=== PATIENT | female | born 1985 | race Caucasian/White ===

== ENCOUNTER 2019-07-06 18:57 | Inpatient (IN) | payer OTHER, SELFPAY ==
[2019-07-06 19:36] VITALS: BP 134/85; PULSE 103
[2019-07-06] MEDS: DINOPROSTONE 10 MG VAG INSERT VAGINAL (20:02)
[2019-07-06 20:18] LABS: Basophils Percent Auto 0.3 % (0.2-1.2); Eosinophils Percent Auto 0.1 % (0-4.4); Hematocrit 38.1 % (37.0-47.0); Hemoglobin 12.7 g/dL (12.0-15.0); Immature Granulocyte Absolute 0.07 K/mm3 (0.00-0.031); Immature Granulocyte Percent A 0.5 % (0-0.5); Lymphocytes Absolute Auto 3.38 K/mm3 (0.9-3.2); Lymphocytes Percent Auto 25.1 % (18.3-44.2); Mean Corpuscular HGB Conc 33.3 g/dl (32-36); Mean Corpuscular Hemoglobin 31.8 pg (26-34); Mean Corpuscular Volume 95.5 fl (80-100); Mean Platelet Volume 10.5 fl (7.4-10.4); Monocytes Absolute Auto 0.8 K/mm3 (0.1-0.6); Monocytes Percent Auto 5.6 % (2.6-8.5); Neutrophils Absolute Auto 9.2 K/mm3 (1.3-6.7); Neutrophils Percent Auto 68.4 % (45.5-73.1); Platelet Count Result 290 k/mm3 (150-375); Red Blood Count 3.99 M/mm3 (4.2-5.4); Red Cell Distribution Width 13.7 % (11.5-14.5); White Blood Count 13.5 K/mm3 (4.5-10.0)
--- NOTE | 2019-07-06 20:28 | LDADM ---
This patient, Tammie Haynes, was admitted to Labor/Delivery/Recovery 106 on 07/06/19 at 18:57. Plans for labor, pain management and were discussed with patient. Patient/family oriented to hospital policies and general routines including ID bracelet, bed and alarms, visiting hours, pain management, procedures, bathroom and other care routines, personal items, smoking policy, room service/diet and guest tray routines, infant security routines, and visiting hours. Patient/Family are encouraged to report perceived risks to care and to ask questions if they do not understand what they are told or what they should do. See OBIX for further documentation.
[2019-07-06 20:31] VITALS: BP 125/73; PULSE 102
[2019-07-06 21:00] VITALS: BP 134/82; PULSE 95
[2019-07-06 22:01] VITALS: BP 132/71; PULSE 90
[2019-07-07] VITALS (114 sets, daily range): BP systolic 94–131; BP diastolic 39–88; PULSE 65–117; TEMP 36.8–37.3; O2SAT 97–100; BMI 47.2
[2019-07-07] MEDS: LACTATED RINGERS 1,000 ML 125 ML IV CONT ×2 (02:30→23:38)
--- NOTE | 2019-07-07 05:39 | WPDANESEPP ---
Anes - Eval Pre Procedure Procedure: labor epidural Date/Time: 07/07/19 05:39 Surgeon: rony Pre Op Diagnosis: Induction Patient Data Age: 34 Gender: F Height: Weight: Last Vital Signs Temp 37.1 C 07/07/19 02:18 Pulse 76 07/07/19 03:30 BP 123/72 07/07/19 03:30 Allergies Allergy/AdvReac Type Severity Reaction Status Date / Time Penicillins Allergy Unknown Verified 07/03/19 10:50 Home Medications Medication Instructions Recorded Confirmed Type vits 75-iron 28 mg-folic pkg PO 01/09/19 History acid 800 mcg-omega-3 oral combo pack Laboratory Tests 07/06/19 07/06/19 07/06/19 20:00 20:00 20:01 WBC 13.5 K/mm3 H K/mm3 (4.5-10.0) RBC 3.99 M/mm3 L M/mm3 (4.2-5.4) Hgb 12.7 g/dL g/dL (12.0-15.0) Hct 38.1 % % (37.0-47.0) MCV 95.5 fl fl (80-100) MCH 31.8 pg pg (26-34) MCHC 33.3 g/dl g/dl (32-36) RDW 13.7 % % (11.5-14.5) Plt Count 290 k/mm3 k/mm3 (150-375) MPV 10.5 fl H fl (7.4-10.4) Immature Gran % (Auto) 0.5 % % (0-0.5) Neut % (Auto) 68.4 % % (45.5-73.1) Lymph % (Auto) 25.1 % % (18.3-44.2) [place] % (Auto) 5.6 % % (2.6-8.5) Eos % (Auto) 0.1 % % (0-4.4) Baso % (Auto) 0.3 % % (0.2-1.2) Lymph # (Auto) 3.38 K/mm3 H K/mm3 (0.9-3.2) [place] # (Auto) 0.8 K/mm3 H K/mm3 (0.1-0.6) Eos # (Auto) 0.0 K/mm3 K/mm3 (0-0.3) Baso # (Auto) 0.0 K/mm3 K/mm3 (0.0-0.1) Abs Immat Gran (auto) 0.07 K/mm3 H K/mm3 (0.00-0.031) Absolute Neuts (auto) 9.2 K/mm3 H K/mm3 (1.3-6.7) Absolute Nucleated RBC 0.0 K/mm3 K/mm3 (0.0-0.012) Nucleated RBC % 0.0 % % (0.0-0.2) RPR Pending Blood Type B Positive Antibody Screen Negative Patient hx anesthesia problems: none Family hx anesthesia problems: none PMFSH Social History Social History Smoking status: Never smoker Alcohol intake: never Substance use: never Gender identity (if verbalized by the patient): Female Spiritual care concerns: No Exam Day of Procedure 07/07/19 05:39
[2019-07-07 07:06] LABS: Rapid Plasma Reagin Non-Reactive (NonReactive)
[2019-07-07] MEDS: MISOPROSTOL 25 MCG TABLET VAGINAL ×2 (09:31→13:31)
--- NOTE | 2019-07-07 10:26 | PM.IMHP ---
H&P: HPI History of Present Illness Chief complaint: Induction Narrative: Tammie Haynes is a 34 year old female at 38 weeks by LMP 10/12/18 with an EDC 07/19/19, Ultrasound on 12/26 [id number] 07/21/19, which was consistent with her established EDC by her sure LMP. 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 She has been getting serial ultrasounds for growth which have been reassuring. She has had evaluation by her manager of regulatory affairs and [place] disease was ruled out. Her renal function has been normal. Labs: B+, Frag X abd NIPT neg, CF neg, hemoglobin electrophoresis normal, HIV-neg, RPR- neg, HepBsag-neg, Rub- NI, TSH-nl, VitD-16, H/H 13/39/296, glucola-137, 3hr 86/172/145/87. No headache, scotomata or RUQ pain. Review of Systems Review of Systems: All systems reviewed & are unremarkable except as noted in HPI and below Constitutional: Constitutional: Reports no additional constitutional complaints and Denies headache(s) Eyes: Eyes: Denies spots in vision ENT: Reports system reviewed and no additional complaints, except as documented and Denies headache(s) Cardiovascular: Cardiovascular: Denies chest pain and Denies dyspnea Respiratory: Respiratory: Denies dyspnea Gastrointestinal: Gastrointestinal: Reports no additional gastrointestinal complaints Genitourinary: Genitourinary: Reports amenorrhea Musculoskeletal: Musculoskeletal: Reports no additional musculoskeletal complaints Integumentary/Breasts: Skin/Breast: Denies breast mass and Denies rash Neurologic: Denies headache(s) Psychiatric: Psychiatric: Reports no additional psychiatric complaints [facility] Past Medical History Medical History Chronic hypertension affecting Renal disease Family History Family History Grandparent Carcinoma of colon Mother Hypertension Diabetes mellitus Mother Diabetes mellitus Hypertension Grandparent Carcinoma of colon Social History Social History Smoking status: Never smoker Alcohol intake: never Substance use: never Gender identity (if verbalized by the patient): Female Spiritual care concerns: No Meds Home Medications and Allergies Home Medications Medication Instructions Recorded Confirmed Type vits 75-iron 28 mg-folic pkg PO 01/09/19 History acid 800 mcg-omega-3 oral combo pack Allergies Allergy/AdvReac Type Severity Reaction Status Date / Time Penicillins Allergy Unknown Verified 07/03/19 10:50 Vital Signs Vital Signs - 24 hr 07/06/19 19:36 07/06/19 20:31 07/06/19 21:00 Temperature Pulse Rate 103 H 102 H 95 Blood Pressure 134/85 125/73 134/82 07/06/19 22:01 07/07/19 02:18 07/07/19 02:20 Temperature 98.8 F Pulse Rate 90 92 Blood Pressure 132/71 124/75 07/07/19 02:46 07/07/19 03:00 07/07/19 03:15 Temperature Pulse Rate 87 82 82 Blood Pressure 111/63 108/66 108/56 L 07/07/19 03:30 07/07/19 07:03 07/07/19 07:32 Temperature 98.3 F Pulse Rate 76 78 Blood Pressure 123/72 125/71 07/07/19 09:37 07/07/19 09:45 07/07/19 10:00 Temperature Pulse Rate 85 74 75 Blood Pressure 123/78 119/74 124/69 07/07/19 10:15 Temperature Pulse Rate 71 Blood Pressure 122/67 Exam Const: General: no acute distress Eyes: General: appearance normal, both eyes and all related structures Resp: Effort & Inspection: normal respiratory effort Cardio: Rate: regular rate GI: Other: Gravid no fundal tenderness no right upper quadrant pain, louis 8-8 03/06 : External Female Exam: normal external appearance Manual OB Exam: Not dilated nor effaced Skin: General skin exam: no rashes or lesions noted Neuro: Cognition (Neuro): normal cog
--- NOTE | 2019-07-07 11:04 | PM.OBPNVD ---
OB - PN: Subj Subjective Date/time seen: 07/07/19 0920 tracing reviewed. Cat 1. Baseline 135. She had isolated variable decels. Variability present. Cervix checked recently and int os closed. Will start Cytotec. OB - PN: Obj Data Labs CBC & Chem 7: 07/06/19 20:01 Labs: Laboratory Results - last 24 hr 07/06/19 07/06/19 07/06/19 20:00 20:00 20:01 WBC 13.5 H RBC 3.99 L Hgb 12.7 Hct 38.1 MCV 95.5 MCH 31.8 MCHC 33.3 RDW 13.7 Plt Count 290 MPV 10.5 H Immature Gran % (Auto) 0.5 Neut % (Auto) 68.4 Lymph % (Auto) 25.1 [place] % (Auto) 5.6 Eos % (Auto) 0.1 Baso % (Auto) 0.3 Lymph # (Auto) 3.38 H [place] # (Auto) 0.8 H Eos # (Auto) 0.0 Baso # (Auto) 0.0 Abs Immat Gran (auto) 0.07 H Absolute Neuts (auto) 9.2 H Absolute Nucleated RBC 0.0 Nucleated RBC % 0.0 RPR Non-reactive Blood Type B Positive Antibody Screen Negative OB - PN A/P Time Spent With Patient Time: Total time spent is greater than 50% in coordination of care (as documented) at patient's floor/unit and/or counseling patient:
--- NOTE | 2019-07-07 15:58 | PM.OBPNVD ---
OB - PN: Subj Subjective Date/time seen: 07/07/19 15:58 FHT 140, Cat 1, isolated variable decel, non repetitive, variability present. Cervix 2/50%/-2, AROM clear. If contractions decrease then will augment with Pitocin. OB - PN: Obj Data Labs CBC & Chem 7: 07/06/19 20:01 Labs: Laboratory Results - last 24 hr 07/06/19 07/06/19 07/06/19 20:00 20:00 20:01 WBC 13.5 H RBC 3.99 L Hgb 12.7 Hct 38.1 MCV 95.5 MCH 31.8 MCHC 33.3 RDW 13.7 Plt Count 290 MPV 10.5 H Immature Gran % (Auto) 0.5 Neut % (Auto) 68.4 Lymph % (Auto) 25.1 [place] % (Auto) 5.6 Eos % (Auto) 0.1 Baso % (Auto) 0.3 Lymph # (Auto) 3.38 H [place] # (Auto) 0.8 H Eos # (Auto) 0.0 Baso # (Auto) 0.0 Abs Immat Gran (auto) 0.07 H Absolute Neuts (auto) 9.2 H Absolute Nucleated RBC 0.0 Nucleated RBC % 0.0 RPR Non-reactive Blood Type B Positive Antibody Screen Negative OB - PN A/P Time Spent With Patient Time: Total time spent is greater than 50% in coordination of care (as documented) at patient's floor/unit and/or counseling patient:
[2019-07-07] MEDS: OXYTOCIN 30 UNITS/NS 500 ML 30 UNITS/500 ML BAG 6 UNITS IV CONT (20:00)
[2019-07-08] VITALS (66 sets, daily range): BP systolic 108–142; BP diastolic 54–84; PULSE 65–135; RESP 18; TEMP 36.9–37.7; O2SAT 91–100
[2019-07-08] MEDS: OXYTOCIN 30 UNITS/NS 500 ML 30 UNITS/500 ML BAG 6 UNITS IV CONT (05:04)
--- NOTE | 2019-07-08 05:08 | PM.OBPRVD ---
OB - Delivery Note Procedure Delivery date: 07/08/19 Procedure: Spontaneous vaginal delivery events: Labor Induction Induction method: AROM, per misoprostol protocol and per pitocin protocol Delivery augmentation: rupture of membranes Delivery monitor: external FHT and internal uterine Route of delivery: Laceration description: Perineal - 1st Degree Delivery repair: vicryl (3.0) Specimen: Yes Estimated blood loss (mL): 150 Anesthesia type: Epidural Disposition: floor Complications: None [place] Baby Date of : 07/08/19 Time of : 04:25 Weeks of gestation at delivery: 38 Infant gender: Male Weight (pounds): 7 Weight (ounces): 9 presentation: vertex position: Left Occiput Anterior Placenta delivery description: Spontaneous cord vessel description: Nuchal Cord, Tight and Reduced (surgically) score one minute: 8 score five minutes: 9 Narrative: Patient admitted on 07/06 for induction with cervidil due to chronic hypertension. She had cervidil in for 12 hours. Cervix unchanged. She was started on Cytotec. After her second dose. Her cervix dilated to 2 cm. She had assisted rupture of membranes, clear. Her labor course significant for nonrepetitive variable decelerations. She had IUPC placed to monitor contractions better. She was started on Pitocin. She progressed into active labor. Tracing was Cat 2. She did have decelerations at start of pushing. After resting she then pushed and delivered a male infant in the left occiput anterior position. Tight nuchal cord surgically reduced. vigorously crying and placed on maternal abdomen. Cord gases and cord blood obtained. Placenta delivered intact. She sustained a first degree perineal laceration repaired with 3.0 vicryl. EBL 150cc. Patient tolerated procedure well. Baby name Sae.
[2019-07-08] MEDS: DOCUSATE SODIUM 100 MG CAPSULE PO ×2 (08:10→16:39)
[2019-07-08] MEDS: IBUPROFEN 600 MG TABLET PO ×2 (08:10→16:39)
[2019-07-08] MEDS: MULTIVIT/MIN/PREN/FOL AC/IRON TABLET 1 TAB PO (08:10)
--- NOTE | 2019-07-08 08:17 | PC.NURSE ---
Addendum entered by Constance Brown RN 07/08/19 08:18: Arrived on unit at 0735. Original Note: Patient transferred to post room #292 via wheelchair. Support person present. Oriented to unit, room, information board, rooming in, admission packet and security measures. Patient verbalizes understanding.
--- NOTE | 2019-07-08 09:30 | PC.NURSE ---
Mother called out for assist with feeding, reporting is sleepy. Reviewed feeding cues, frequencies, duration of feedings, feeding elimination flow sheet, and signs of adequate intake. Demonstrated stimulation techniques to wake for feeding. Assisted with to breast. Reviewed positioning/alignment, holding breast and asymmetrical latch on. Infant was sleepy making no atempt to latch. Advised to skin to skin and attempt again in 30 min.
--- NOTE | 2019-07-08 10:30 | PC.NURSE ---
Mother called out for assist with feeding. . Demonstrated stimulation techniques to wake for feeding. Several minutes of stimulation to wake infant. Assisted with to breast. Reviewed positioning/alignment in cross cradle, holding breast in U hold and guided asymmetrical latch on. Discussed rational for each. Infant was able to latch correctly. Infant nursed slowly at first needing constant stimulation, within a few minutes began nursing eagerly, with steady draws and occasional swallowing noted. Reviewed signs of a correct latch, effective nursing and suck swallow ratio. was able to maintain latch without discomfort to mother. Nipple care reviewed. Advised to continue to stimulate to keep awake and nursing effectively for increased intake and to assist with maintaining deep latch. Instructed mother to call out for RN assistance if she is unable to latch for feeding or she has discomfort with nursing. Instructed feeding should be initiated three hours from start of last feeding or if feeding cues are noted before. Mother voiced understanding of information shared.
[2019-07-09] MEDS: IBUPROFEN 600 MG TABLET PO ×4 (00:05→23:04)
[2019-07-09 05:24] LABS: Hematocrit 32.7 % (37.0-47.0); Hemoglobin 10.9 g/dL (12.0-15.0)
[2019-07-09] MEDS: BENZOCAINE 20% AER SPR (*SP) 56 GM CAN 1 SPRAY TOPICAL (07:58)
[2019-07-09] MEDS: DOCUSATE SODIUM 100 MG CAPSULE PO (07:58)
[2019-07-09] MEDS: WITCH HAZEL 40 PADS 1 PAD TOPICAL (07:58)
[2019-07-09 08:00] VITALS: BP 133/83; PULSE 78; RESP 18; TEMP 36.4; O2SAT 100
--- NOTE | 2019-07-09 08:41 | PM.OBPNVD ---
OB - PN: Subj Subjective Date/time seen: 07/09/19 08:41 No headache scotomata or right upper quadrant pain. Patient comments: pain well controlled, tolerating diet and other (Decreasing lochia.) baby status: doing well and nursing well feeding status: exclusively breast feeding OB - PN: Obj Data Labs CBC & Chem 7: 07/09/19 05:09 Labs: Laboratory Results - last 24 hr 07/09/19 05:09 Hgb 10.9 L Hct 32.7 L OB - PN A/P Plan day: 1 Plan: routine care Comments: Patient doing well. Isolated elevated blood pressure yesterday. Normal this am. Continue to monitor. Time Spent With Patient Time: Total time spent is greater than 50% in coordination of care (as documented) at patient's floor/unit and/or counseling patient: Exam Psych: Affect: normal affect Other: Abd: fundus firm below umbilicus, nontender Perineum: healing Ext: nontender
--- NOTE | 2019-07-09 11:25 | PC.NURSE ---
Mother called out for assist feeding. Mother reports was eagerly feeding throughout the night without discomfort. Reviewed feeding cues, frequencies, duration of feedings, feeding elimination flow sheet, and signs of adequate intake. Demonstrated stimulation techniques to wake infant for feeding. Assisted with infant to breast. Reviewed positioning/alignment in cross cradle, holding breast in U hold and guided asymmetrical latch on. Discussed rational for each. was able to latch correctly. Infant nursed eagerly, with steady draws and occasional swallowing noted. Reviewed signs of a correct latch, effective nursing and suck swallow ratio. Infant was able to maintain latch without discomfort to mother. Nipple care reviewed. Suggested mother continue to stimulate during feeding to increase intake and assist with maintaining deep latch. Instructed mother to call out for RN assistance if she is unable to latch infant for feeding or she has discomfort with nursing. Instructed feeding should be initiated three hours from start of last feeding or if feeding cues are noted before. Mother voiced understanding of information shared.
[2019-07-09] MEDS: MEASLES,MUMPS,RUBELLA VACCINE 0.5 ML VIAL SUB-Q (15:58)
[2019-07-09 19:00] VITALS: BP 139/85; PULSE 72; RESP 18; TEMP 36.7; O2SAT 98
[2019-07-10 08:00] VITALS: BP 134/66; PULSE 66; RESP 18; TEMP 36.9
[2019-07-10] MEDS: WITCH HAZEL 40 PADS 1 PAD TOPICAL (08:12)
[2019-07-10] MEDS: IBUPROFEN 600 MG TABLET PO (08:12)
[2019-07-10] MEDS: BENZOCAINE 20% AER SPR (*SP) 56 GM CAN 1 SPRAY TOPICAL (08:12)
[2019-07-10] MEDS: DOCUSATE SODIUM 100 MG CAPSULE PO (08:13)
[2019-07-10] MEDS: MULTIVIT/MIN/PREN/FOL AC/IRON TABLET 1 TAB PO (08:13)
--- NOTE | 2019-07-10 09:50 | PC.NURSE ---
Consult with pt., mother is teary this day and concerned with . Infant was fussy during the night and mother supplemented to calm infant. Assured mother infant is WNL on all requirements and small amounts of supplementation are needed if infant is not feeding as required or has low output. Infant has been eagerly latching since and satisfied after feedings. Advised mother to offer small amounts of EBM or formula before feedings if is fussy and refused to latch. Then attempt to breast. Mother is able to independently latch infant with appropriate positioning/alignment. She denies any nipple discomfort, is feeding as required and waking infant to feed if needed. has had 8 effective feedings in the past 24 hours, and is currently meeting outcomes for weight, output, jaundice and feeding frequencies. Mother states she feels confident to continue effective at home. Reviewed transition to breast milk, signs of adequate intake, and engorgement/relief. Instructed to call ICP if intake/output less than required. Reviewed regular medications mother is taking. Information provided per Juliette. Reviewed community resources on the [facility] website and in the Mom/Baby guide. Information on outpatient services provided. Mother has no further questions at this time.
--- NOTE | 2019-07-10 11:34 | PM.OBPNVD ---
OB - PN: Subj Subjective Date/time seen: 07/10/19 11:34 Patient comments: pain well controlled, tolerating diet and other (Decreasing lochia.) baby status: doing well and nursing well [place] feeding status: exclusively breast feeding OB - PN: Obj Data Labs CBC & Chem 7: 07/09/19 05:09 OB - PN A/P Plan day: 2 Plan: discharge home and other Comments: Patient doing well. Follow up in one week, may do this virtual since has blood pressure cuff at home. Follow up 4-6 weeks. Discharge instructions provided. Time Spent With Patient Time: Total time spent is greater than 50% in coordination of care (as documented) at patient's floor/unit and/or counseling patient: Time with patient: less than 15 minutes Exam Psych: Affect: normal affect Other: Abd: fundus firm below umbilicus, nontender Perineum: healing Ext: nontender
[2019-07-11 10:43] VITALS: BP 129/70; PULSE 69; RESP 18; TEMP 36.9
--- NOTE | 2019-08-08 11:52 | PM.OBDSVD ---
DS: Admitting Diagnosis Admitting Diagnosis Admitting Diagnosis: Encounter for supervision of normal , unspecified, third trimester DS: Discharge Diagnosis Discharge Diagnosis (1) Encounter for induction of labor: Code(s): Z34.90 - Encounter for supervision of normal , unspecified, unspecified trimester Status: Acute OB - DS: Summary OB Procedures : NST and Ultrasound OB Procedures Intrapartum: Spontaneous Vag Delivery OB Procedures: : None Peripartum Data Delivery Method: Natural Vaginal Laceration description: Perineal - 1st Degree Procedures: Spontaneous vaginal delivery complications: none Status at Discharge Functional status at discharge: independent ambulation Overall status at discharge: patient is back to baseline Time Spent with Patient Time attestation: Total time spent providing and/or coordinating discharge services: Time spent: Less than 30 minutes Exam Const: General: comfortable Resp: Effort & Inspection: normal respiratory effort Psych: Appearance: grossly normal DS: Data Data Completed and Pending Completed studies during hospitalization: Pending at discharge 07/08/19 04:31 Surgical [PTH] Routine Discharge Plan Discharge Attending physician on discharge: Carlos Combs Discharging Clinician: Carlos Combs Anticipated Discharge Date/Time: 07/10/19 11:35 Patient Disposition: Home, Self-Care Activity: may shower and pelvic rest Diet: low sodium Discharge Instructions: Routine post vaginal delivery. Take vitamin daily. May take over the counter Ibuprofen or Tylenol for pain. Take blood pressure at home every 1-2 days. Call for severe headache, scotomata or upper abdominal pain, or if saturating more than a pad an hour, leg pain and redness. Education: Mom and Baby Guide Given to: Mother Follow-Up: Call your delivering provider's office for an appointment to be seen in: 4 Weeks Mom and baby should come to the [facility] for the follow-up appointment. Appointment Date/Time: July 11, 2019 at 10:00 am What to expect at your follow-up visit: Blood Pressure Check Physical Assessment Call [phone] if you are unable to keep your appointment time. BREAST CARE: 1. Wear a snug supportive bra. 2. For engorgement discomfort: Breast Feeding: A. Apply warm moist washcloths B. Express milk as needed to relieve engorgement C. Wear loose clothing 3. For sore nipples: A. Identify correct latch-on B. Apply warm moist washcloths before and after nursing C. Air dry nipples after nursing D. May apply Lansinoh cream to nipples EPISIOTOMY/PERINEAL CARE: 1. Until bleeding stops, use your bindu bottle after urinating 2. Change your pad frequently throughout the day 3. You may take sitz baths several times a day (fill your bathtub with warm water and soak for 20 minutes.) Do NOT bathe in the water 4. No tub baths until seen by your physician - You may shower ACTIVITY: 1. Rest as much as possible. 2. Do not exercise or lift anything heavier than your baby (such as laundry or other children.) 3. Avoid stairs or driving as much as possible. 4. Do not put anything into the vagina. No douching, tampons, or sexual activity until seen by physician. NOTIFY PHYSICIAN IF YOU HAVE ANY QUESTIONS OR IF ANY OF THE FOLLOWING SYMPTOMS OCCUR: 1. If your episiotomy or incision becomes red, swollen, or more painful than what you have experienced in the hospital. 2. If your vaginal bleeding becomes foul smelling. 3. If your vaginal bleeding becomes more heavy than a period or if your bleeding changes from pink to bright red. However, you may pass an occasional walnut-sized clot once or twice for the first week . 4. If you experience a sharp, shooting pain in you calves. 5. If you discover a hard, redde
== END 2019-07-10 13:25 | disposition home or self-care (01) | DRG 807 ==
LOC: ANHLDR 07-07 15:27 → ANHOB2 07-08 07:46
PROVIDERS: Admitting Provider Obstetrics & Gynecology; PCP Family Medicine; Visit Provider Obstetrics & Gynecology
DX: O13.4 Gestational [pregnancy-induced] hypertension without significant proteinuria, complicating childbirth (principal); Z37.0 Single live birth; Z3A.38 38 weeks gestation of pregnancy; O99.214 Obesity complicating childbirth; E66.01 Morbid (severe) obesity due to excess calories; O36.8330 Maternal care for abnormalities of the fetal heart rate or rhythm, third trimester, not applicable or unspecified; O70.0 First degree perineal laceration during delivery; O69.81X0 Labor and delivery complicated by cord around neck, without compression, not applicable or unspecified; O99.89 Other specified diseases and conditions complicating pregnancy, childbirth and the puerperium; N28.9 Disorder of kidney and ureter, unspecified
CPT/HCPCS: 36415; 85014; 85018; 85025; 86592; 86850; 86900; 86901; 88307; 90710; A9270; J2590; J2795; J7120

== ENCOUNTER 2022-08-22 22:24 | Emergency (ER) | payer OTHER, SELFPAY ==
--- NOTE | ~2022-08-22 | XR_ITS ---
Portable chest x-ray Comparison: None Clinical History: Chest pain Findings: Lungs are clear, without focal consolidation or pleural effusion. Cardiomediastinal silho uette is unremarkable. Bones and soft tissues are unremarkable. Impression: Normal chest. Reviewed, dictated and finalized at location [facility]. Impression: Normal chest.
[2022-08-22 22:29] VITALS: BP 150/97; BP 160/100; PULSE 101; PULSE 104; RESP 15; RESP 16; TEMP 36.9; TEMP 37.6; O2SAT 100
--- NOTE | 2022-08-22 22:30 | ED.CHESTPAIN ---
HPI - Chest Pain General Chief Complaint: Chest Pain Stated Complaint: upper extremity pain Time Seen by Provider: 08/22/22 22:29 Source: patient Mode of arrival: ambulatory Limitations: no limitations History of Present Illness HPI narrative: 37-year-old female with a history of white coat hypertension, minimal change glomerulonephritis in remission presents to the ER with a 1 day history of -- central chest discomfort/pain radiating to both arms. No relation to exercise. No nausea/ vomiting. No shortness of breath or lightheadedness. Patient is a nonsmoker without any history of hypertension, dyslipidemia, positive family history of CAD MD complaint: chest pain Onset (ago): day(s) ( started yesterday) Timing of current episode: episodic Prior episodes: No Onset: during rest Pain location: substernal Pain radiation: right arm and left arm Pain scale (0-10): 4 Quality: tightness and aching Relieving factors: nothing Exacerbating factors: nothing Treatment prior to arrival: none Related Data Home Medications Medication Instructions Recorded Confirmed cholecalciferol (vitamin D3) 25 25 mcg PO BID 07/14/21 08/22/22 mcg (1,000 unit) capsule prenat.vits,eliana,ags-lmje-asnde 1 tablet PO DAILY 07/20/22 08/22/22 Allergies Allergy/AdvReac Type Severity Reaction Status Date / Time Penicillins Allergy Unknown Verified 07/20/22 14:15 Review of Systems Review of Systems: All systems reviewed & are unremarkable except as noted in HPI and below Constitutional: Constitutional: Reports as per HPI and Reports no additional constitutional complaints Eyes: Eyes: Reports as per HPI and Reports no additional eye complaints ENT: Reports system reviewed and no additional complaints, except as documented, Reports as per HPI and Reports Normal hearing present Cardiovascular: Cardiovascular: Reports as per HPI, Reports no additional cardiovascular complaints and Reports chest pain Respiratory: Respiratory: Reports as per HPI, Reports no additional respiratory complaints and Reports no additional respiratory complaints Gastrointestinal: Gastrointestinal: Reports as per HPI, Reports no additional gastrointestinal complaints and Reports abdominal pain Genitourinary: Genitourinary: Reports no additional female genitourinary complaints and Reports as per HPI Musculoskeletal: Musculoskeletal: Reports no additional musculoskeletal complaints and Reports as per HPI Integumentary/Breasts: Skin/Breast: Reports system reviewed and no additional complaints, except as docu and Reports as per HPI Neurologic: Reports system reviewed and no additional complaints, except as documented and Reports as per HPI Psychiatric: Psychiatric: Reports no additional psychiatric complaints and Reports as per HPI Endocrine: Endocrine: Reports no additional endocrine complaints and Reports as per HPI Hematologic/Lymphatic: Hematologic/Lymphatic: Reports no additional hematologic/lymphatic complaints and Reports as per HPI Allergic/Immunologic: Allergic/Immunologic: Reports no additional allergic/immunologic complaints and Reports as per HPI PMFSH Past Medical History Medical History (Updated 08/22/22 @ 23:40 by Marito Fermin MD) Chronic hypertension affecting Encounter for induction of labor Follow-up, , routine Renal disease Family History Family History Grandparent Carcinoma of colon Mother Hypertension Diabetes mellitus Mother Diabetes mellitus Hypertension Grandparent Carcinoma of colon Social History Social History Smoking status: Never smoker Alcohol intake: never Substance use: never Gender identity (if verbalized by the patient): Female Spiritual care concerns: No Exam Narrative: hypertension with a blood pressure of 160/100 Const: General: cooperative, healthy appearin
--- NOTE | 2022-08-22 22:38 | ECG_ITS ---
Measurements Intervals [place] Rate: 89 P: 38 DE: 155 QRS: 11 QRSD: 88 T: 55 QT: 352 QTc: 429 Interpretive Statements SINUS RHYTHM LOW QRS VOLTAGE IN PRECORDIAL LEADS [QRS DEFLECTION < 1.0 mV IN CHEST LEADS] COMPARED TO ECG 01/20/2019 09:29:19 NO SIGNIFICANT CHANGES Electronically Signed On 08-23-2022 20:02:22 CDT by Lashell Gonzalez M.D.
[2022-08-22 23:04] LABS: Pregnancy On Board Control Positive; Urine Pregnancy Test Negative
[2022-08-22 23:05] LABS: Basophils Absolute Auto 0.05 K/mm3 (0.00-0.10); Basophils Percent Auto 0.5 % (0.0-1.0); Eosinophils Absolute Auto 0.09 K/mm3 (0.02-0.50); Eosinophils Percent Auto 0.9 % (1.0-6.0); Hematocrit 39.3 % (35.0-49.0); Hemoglobin 12.6 g/dL (12.0-15.0); Immature Granulocyte Absolute 0.03 K/mm3 (0.00-0.00); Immature Granulocyte Percent A 0.3 % (0.0-0.0); Lymphocytes Absolute Auto 3.46 K/mm3 (1.10-4.50); Lymphocytes Percent Auto 34.3 % (18.0-42.0); Mean Corpuscular HGB Conc 32.1 g/dL (32.0-36.0); Mean Corpuscular Hemoglobin 30.9 pg (27.0-31.0); Mean Corpuscular Volume 96.3 fL (78.0-102.0); Mean Platelet Volume 9.2 fl (9.2-11.8); Monocytes Absolute Auto 0.69 K/mm3 (0.10-0.90); Monocytes Percent Auto 6.8 % (2.0-11.0); Neutrophils Absolute Auto 5.8 K/mm3 (1.7-7.2); Neutrophils Percent Auto 57.2 % (50.0-70.0); Platelet Count Result 284 K/mm3 (150-420); Red Blood Count 4.08 M/mm3 (4.20-5.40); Red Cell Distribution Width 12.8 % (11.6-14.4); White Blood Count 10.1 K/mm3 (4.8-10.8)
[2022-08-22 23:23] LABS: Alanine Aminotransferase 27 U/L (14-59); Albumin Level 3.4 g/dL (3.4-5.0); Alkaline Phosphatase 114 U/L (46-116); Anion Gap 8 mmol/L (8-16); Aspartate Amino Transferase 17 U/L (15-37); Bilirubin,Total 0.2 mg/dL (0.00-1.00); Blood Urea Nitrogen 13 mg/dL (7-18); Calcium 8.9 mg/dL (8.5-10.1); Carbon Dioxide 29 mmol/L (21-32); Chloride 104 mmol/L (98-108); Estimated CRCL calculation 106 ml/min; Estimated Glomerular Filt Rate > 60; Glucose 113 mg/dL (70-99); Osmolality Calculated 293 mOsm/kg (285-295); Potassium 3.6 mmol/L (3.5-5.1); Sodium 141 mmol/L (136-145); Total Protein 7.4 g/dL (6.4-8.2); Troponin I 4.3 ng/L (0.00-60.4)
[2022-08-22 23:48] VITALS: BP 141/82; PULSE 98; RESP 15; TEMP 37.1; O2SAT 98
== END 2022-08-22 23:49 | disposition home or self-care (01) ==
PROVIDERS: Emergency Provider Internal Medicine Critical Care Medicine
DX: R07.89 Other chest pain (principal); I10 Essential (primary) hypertension
CPT/HCPCS: 36415; 71045; 80053; 81025; 84484; 85025; 93005; 99284

== ENCOUNTER 2023-05-13 21:58 | Emergency (ER) | payer OTHER, SELFPAY ==
[2023-05-13] VITALS (8 sets, daily range): BP systolic 120–147; BP diastolic 70–95; PULSE 81–104; RESP 14–20; TEMP 36.6–37.6; O2SAT 98–100
--- NOTE | ~2023-05-13 | XR_ITS ---
Portable chest x-ray Comparison: 08/22/2022 Clinical History: Chest pain Findings: Lungs are clear, without focal consolidation or pleural effusion. Cardiomediastinal silho uette is stable. Bones and soft tissues are unremarkable. Impression: Normal chest. Reviewed, dictated and finalized at [facility]. Impression: Normal chest.
--- NOTE | 2023-05-13 22:01 | ECG_ITS ---
Measurements Intervals [place] Rate: 104 P: 57 WV: 156 QRS: 25 QRSD: 90 T: 70 QT: 347 QTc: 457 Interpretive Statements SINUS TACHYCARDIA LOW QRS VOLTAGE IN PRECORDIAL LEADS BORDERLINE ST ABNORMALITY- HIGH LATERAL LEADS BASELINE ARTIFACT- II, III, AVF, V1 BORDERLINE ECG COMPARED TO ECG 08/22/2022 22:57:19 [address] NOW PRESENT ST (T WAVE) DEVIATION NOW PRESENT Electronically Signed On 05-14-2023 6:48:12 CDT by Andrew Arcos D.O.
--- NOTE | 2023-05-13 22:10 | ED.GENADULT ---
HPI - General Adult General Chief complaint: Chest Pain Stated complaint: pressure on chest Time Seen by Provider: 05/13/23 22:01 History of Present Illness HPI narrative: Tammie is a 37F with a PMH of GERD, possibly gallstones and chronic hypertension that presented to the ED with left sided chest pain. It has been on and off for a week and sometimes she has tingling in her left arm. She has occasional upper abdominal pain as well. There is no nausea, vomiting, lightheadedness, or dyspnea on exertion. She has no chest pain at this very moment. Related Data Home Medications Medication Instructions Recorded Confirmed No Home Medications 05/13/23 05/13/23 Allergies Allergy/AdvReac Type Severity Reaction Status Date / Time Penicillins Allergy Unknown Verified 12/06/22 12:50 Review of Systems Review of Systems: All systems reviewed & are unremarkable except as noted in HPI and below [facility] Past Medical History Medical History (Updated 05/13/23 @ 23:22 by Manny Waddell DO) Chronic hypertension affecting Encounter for induction of labor Follow-up, , routine Renal disease Family History Family History Grandparent Carcinoma of colon Mother Hypertension Diabetes mellitus Mother Diabetes mellitus Hypertension Grandparent Carcinoma of colon Social History Social History Smoking status: Never smoker Alcohol intake: never Substance use: never Gender identity (if verbalized by the patient): Female Spiritual care concerns: No Exam Const: General: cooperative, healthy appearing, comfortable, no acute distress, well developed, alert, awake and Physically active Orientation/consciousness: oriented to person, oriented to place and oriented to time HENMT: Head: normal to inspection, normocephalic and atraumatic Ears: hearing grossly normal bilaterally and external ears normal Face/Nose/Sinus: Normal external nose present Eyes: General: appearance normal, both eyes and all related structures Periorbital: periorbital findings normal Sclera: sclerae normal Pupils: Equal, round and reactive pupils present Neck: Neck: normal visual inspection Chest: Chest palpation & inspection: normal inspection of the chest Other: TTP just lateral to the sternum bilaterally Resp: Effort & Inspection: normal respiratory effort, able to speak in complete sentences and no respiratory distress Auscultation: clear to auscultation bilaterally Cardio: Jugular venous distension: no JVD Rate: regular rate Rhythm: regular rhythm Skin: General skin exam: normal color and no rashes or lesions noted Neuro: General: oriented to person, oriented to place and oriented to time Cranial nerves: Yes Equal, round and reactive pupils present Extrem: General: normal to inspection Course Course Emergency Course: Ordered EKG, labs, and CXR. EKG showed sinus tachycardia with a rate of 104, normal axis and no ST elevation/depression. Labs showed mild hypokalemia and mild leukocytosis. She was given PO potassium. No source of infection for elevated WBC count. Given her reproducible chest pain by palpation, no pain currently, and negative workup it is most likely chest wall pain with anxiety much more likely than a cardiac cause Vital Signs Vital signs: Vital Signs Pulse Rate 104 H 05/13/23 22:00 Temperature 99.7 F H 05/13/23 22:04 Pulse Rate 81 05/13/23 22:46 Respiratory Rate 16 05/13/23 22:46 Blood Pressure 135/79 05/13/23 22:46 Pulse Oximetry 98 05/13/23 22:46 Oxygen Delivery Room Air 05/13/23 22:46 Medical Decision Making Vital Signs Vital Signs: Vital Signs Pulse Rate 104 H 05/13/23 22:00 Temperature 99.7 F H 05/13/23 22:04 Pulse Rate 81 05/13/23 22:46 Respiratory Rate 16 05/13/23 22:46 Blood Pressure 135/79 03/1
[2023-05-13 22:30] LABS: Basophils Absolute Auto 0.06 K/mm3 (0.00-0.10); Basophils Percent Auto 0.5 % (0.0-1.0); Eosinophils Absolute Auto 0.05 K/mm3 (0.02-0.50); Eosinophils Percent Auto 0.4 % (1.0-6.0); Hematocrit 39.6 % (35.0-49.0); Hemoglobin 12.7 g/dL (12.0-15.0); Immature Granulocyte Absolute 0.04 K/mm3 (0.00-0.00); Immature Granulocyte Percent A 0.3 % (0.0-0.0); Lymphocytes Absolute Auto 4.39 K/mm3 (1.10-4.50); Lymphocytes Percent Auto 33.7 % (18.0-42.0); Mean Corpuscular HGB Conc 32.1 g/dL (32.0-36.0); Mean Corpuscular Hemoglobin 30.3 pg (27.0-31.0); Mean Corpuscular Volume 94.5 fL (78.0-102.0); Mean Platelet Volume 9.5 fl (9.2-11.8); Monocytes Absolute Auto 0.78 K/mm3 (0.10-0.90); Neutrophils Absolute Auto 7.7 K/mm3 (1.7-7.2); Neutrophils Percent Auto 59.1 % (50.0-70.0); Platelet Count Result 269 K/mm3 (150-420); Red Blood Count 4.19 M/mm3 (4.20-5.40); Red Cell Distribution Width 13.3 % (11.6-14.4)
[2023-05-13 22:34] LABS: Pregnancy On Board Control Positive; Urine Pregnancy Test Negative
[2023-05-13 22:50] LABS: Alanine Aminotransferase 45 U/L (14-59); Albumin Level 3.8 g/dL (3.4-5.0); Alkaline Phosphatase 97 U/L (46-116); Anion Gap 10 mmol/L (8-16); Aspartate Amino Transferase 20 U/L (15-37); Bilirubin,Total 0.4 mg/dL (0.00-1.00); Blood Urea Nitrogen 13 mg/dL (7-18); Calcium 9.1 mg/dL (8.5-10.1); Carbon Dioxide 29 mmol/L (21-32); Chloride 101 mmol/L (98-108); Estimated CRCL calculation 115 ml/min; Estimated Glomerular Filt Rate > 60; Glucose 97 mg/dL (70-99); NT Pro B Type Natriuretic Pept 71 pg/mL (0-125); Osmolality Calculated 290 mOsm/kg (285-295); Potassium 3.2 mmol/L (3.5-5.1); Sodium 140 mmol/L (136-145); Total Protein 7.8 g/dL (6.4-8.2)
[2023-05-13 22:53] LABS: Troponin I < 4.0 ng/L (0.00-60.4)
[2023-05-13] MEDS: POTASSIUM CHLORIDE 20 MEQ PACKET (FOR LIQUID) 40 MEQ PO (23:07)
== END 2023-05-13 23:30 | disposition home or self-care (01) ==
PROVIDERS: Emergency Provider Family Medicine; PCP Family Medicine
DX: R07.89 Other chest pain (principal); K21.9 Gastro-esophageal reflux disease without esophagitis; I10 Essential (primary) hypertension
CPT/HCPCS: 36415; 71045; 80053; 81025; 83880; 84484; 85025; 93005; 99284; A9270